=== PATIENT | female | born 1970 | race African-American/Black ===

== ENCOUNTER 2020-03-15 13:32 | Emergency (ER) | payer SELFPAY ==
[~2020-03-15] VITALS: Ht 170.2 cm; Wt 85.3 kg
[2020-03-15 13:45] VITALS: BP 134/91
--- NOTE | 2020-03-15 13:45 | NUR ---
47/F presents ambulatory to ED, c/o anterior neck swelling x2 days, reports pain/difficulty swallowing. Pt denies fever/chills, cough/congestion, CP/SOB. Pt awake and alert, skin normal color warm and dry, rr even and unlabored. Denies med hx or rx.
--- NOTE | 2020-03-15 13:55 | NUR ---
49 Y/O FEMALE PRESENTED TO ED C/O NECK PAIN , DIFFICULTY SWALLOWING X 2 DAYS. PT STATES THAT HER THROAT HURTS AND HASN'T BEEN ABLE TO EAT OR DRINK ANYTHING FOR THE PAST 2 DAYS. PT DENIES F/N/V/D . PT DENIES SOB. PT BREATHING EVEN AND UNLABORED. A/O X4 . PT RESTING IN BED AT LOWEST POSITION, HOB ELEVATED , SIDE RAILS X1. HX: DENIES RX: DENIES
[2020-03-15] MEDS ORDERED: KETOROLAC 30 MG/ML VIAL IVP ONE (14:25)
[2020-03-15] MEDS ORDERED: NACL 0.9% 1,000 ML IV ONE (14:25)
[2020-03-15] MEDS ORDERED: DEXAMETHASONE 10 MG/ML VIAL IM ONE (14:35)
[2020-03-15] MEDS ORDERED: cefTRIAXone 1,000 MG VIAL ONE (14:57)
--- NOTE | 2020-03-15 15:30 | NUR ---
PT RESTING IN BED AT LOWEST POSITION, HOB ELEVATED , SIDE RAIL X1. PT PROVIDED ICE CHIPS FOR COMFORT.
[2020-03-15 16:05] VITALS: BP 131/89
--- NOTE | 2020-03-15 16:05 | NUR ---
Patient discharged with v/s stable. Written and verbal after care instructions given and explained. Patient alert, oriented and verbalized understanding of instructions. Ambulatory with steady gait. All questions addressed prior to discharge. ID band removed. Patient advised to follow up with PMD. Rx of PREDNISONE, LIDOCAINE, AZITHROMYCIN, IBUPROFEN given. Patient educated on indication of medication including possible reaction and side effects. Opportunity to ask questions provided and answered.
--- NOTE | 2020-03-17 14:49 | NUR ---
CALL RECEIVED FROM [facility] FROM LAB, RECEIVED CULTURE RESULTS. POSITIVE FOR STREP GROUP A. REQUESTED HARD COPY BE SENT TO ED.
== END 2020-03-15 16:05 | disposition home or self-care (01) ==
LOC: MED 13:32
DX: J02.9 Acute pharyngitis, unspecified (principal); F17.210 Nicotine dependence, cigarettes, uncomplicated; I10 Essential (primary) hypertension; Z88.0 Allergy status to penicillin
CPT/HCPCS: 87081; 96365; 96372; 96375; 99284; J0696; J1100; J1885; J7030